=== PATIENT | male | born 1975 | race Caucasian/White ===

== ENCOUNTER 2016-12-22 09:16 | Emergency (ER) | payer MEDICAID ==
[2016-12-22] MEDS ORDERED: Sodium Chloride 0.9% 5 ML Syringe FLUSH PRN (09:18)
[2016-12-22] MEDS ORDERED: Sodium Chloride 0.9% 1,000 ML IV ONE (09:18)
--- NOTE | 2016-12-22 09:58 | EDM.PDOC ---
ED HPI GENERAL MEDICAL PROBLEM - General Chief Complaint: Chest Pain Stated Complaint: POST ELECTRIC SHOCK Time Seen by Provider: 12/22/16 09:45 Source of Information: Reports: Patient History Limitations: Reports: No Limitations - History of Present Illness INITIAL COMMENTS - FREE TEXT/NARRATIVE: 41 YO WM presents to ER with left sided chest pain after standing close to a downed power line. Pt reports no electrical shock but after a large "bang" he felt pain in his chest. Pt with associated shortness of breath and lightheadedness. Pt denies any diaphoriesis, nausea or syncope. Pt denies any other injury. Pt states he has history of anxiety but denies any previous ER visits or admissions for chest pain. Onset: Today Onset Date: 12/22/16 Onset Time: 09:00 Location: Reports: Chest Quality: Reports: Pressure Severity: Mild Improves with: Reports: None Worsens with: Reports: None Associated Symptoms: Reports: Chest Pain, Shortness of Breath. Denies: Diaphoresis, Nausea/Vomiting, Syncope - Related Data Allergies Allergy/AdvReac Type Severity Reaction Status Date / Time No Known Allergies Allergy Verified 12/22/16 10:10 ED ROS GENERAL - Review of Systems Review Of Systems: See Below Constitutional: Reports: No Symptoms HEENT: Reports: No Symptoms Respiratory: Reports: No Symptoms Cardiovascular: Reports: Chest Pain, Lightheadedness Endocrine: Reports: No Symptoms GI/Abdominal: Reports: No Symptoms : Reports: No Symptoms Musculoskeletal: Reports: No Symptoms Skin: Reports: No Symptoms Neurological: Reports: No Symptoms Psychiatric: Reports: No Symptoms Hematologic/Lymphatic: Reports: No Symptoms Immunologic: Reports: No Symptoms ED EXAM, GENERAL - Physical Exam Exam: See Below Exam Limited By: No Limitations General Appearance: Alert, WD/WN, No Apparent Distress Nose: Normal Inspection, Normal Mucosa, No Blood Throat/Mouth: Normal Inspection, Normal Lips, Normal Teeth, Normal Gums, Normal Oropharynx, Normal Voice, No Airway Compromise Head: Atraumatic, Normocephalic Neck: Normal Inspection, Supple, Non-Tender, Full Range of Motion Respiratory/Chest: No Respiratory Distress, Lungs Clear, Normal Breath Sounds, No Accessory Muscle Use, Chest Non-Tender Cardiovascular: Normal Peripheral Pulses, Regular Rate, Rhythm, No Edema, No Gallop, No JVD, No Murmur, No Rub GI/Abdominal: Normal Bowel Sounds, Soft, Non-Tender, No Organomegaly, No Distention, No Abnormal Bruit, No Mass Back Exam: Normal Inspection, Full Range of Motion, NT Extremities: Normal Inspection, Normal Range of Motion, Non-Tender, Normal Capillary Refill, No Pedal Edema Neurological: Alert, Oriented, CN II-XII Intact, Normal Cognition, Normal Gait, Normal Reflexes, No Motor/Sensory Deficits Psychiatric: Normal Affect, Normal Mood Skin Exam: Warm, Dry, Intact, Normal Color, No Rash EKG INTERPRETATION EKG Date: 12/22/16 Time: 10:30 Rhythm: NSR Rate (Beats/Min): 62 [place]: Normal P-Wave: Present QRS: Normal ST-T: Normal QT: Normal Comparison: NA - No Prior EKG Course - Vital Signs Last Recorded V/S: Last Vital Signs Temp Pulse Resp BP 132/65 12/22/16 10:10 Pulse Ox - Orders/Labs/Meds Orders: Active Orders 24 hr Category Date Time Status EKG Documentation Completion [RC] ASDIRECTED Care 12/22/16 09:19 Active Peripheral IV Care [RC] . DIRECTED Care 12/22/16 09:19 Active Chest 1V Frontal [CR] Stat Exams 12/22/16 09:21 Taken INR,PT,PROTHROMBIN TIME [COAG] Stat Lab 12/22/16 09:30 Received PTT,PARTIAL THROMBOPLSTIN TIME [COAG] Stat Lab 12/22/16 09:30 Received Nitroglycerin [Nitrostat] Med 12/22/16 10:01 Active 0.4 mg SL Q5M PRN Sodium Chloride 0.9% [Syrex Flush] Med 12/22/16 09:18 Active 5 ml FLUSH Q8HR PRN Peripheral IV Insertion Adult [OM.PC] Routine Oth 12/22/16 09:18 Ordered EKG 12 Lead [EK] Routine Ther 12/22/16 09:18 Ordered Medication Orders Nitroglycerin (Nitrostat) 0.4 mg SL Q5M PRN PRN Reason: Chest Pain Last Admin: 12/22/16 10:10 Dose: 0.4 mg Sodium Chloride (Syrex Flush) 5 ml FLUSH Q8HR PRN PRN Reason: Keep Vein Open Labs: Laboratory Tests 12/22/16 12/22/16 Range/Units 09:30 09:30 WBC 6.6 (5.0-10.0) 10^3/uL RBC 5.12 (4.50-6.00) 10^6/uL Hgb 14.3 (13.0-17.0) g/dL Hct 45.1 (40.0-52.0) % MCV 88.2 (82.0-92.0) fL MCH 28.0 (27.0-31.0) pg MCHC 31.7 L (32.0-36.0) g/dL RDW 13.3 (11.5-14.5) % Plt Count 230 (150-300) 10^3/uL MPV 8.3 (7.4-10.4) fL Neut % (Auto) 62.9 (50.0-70.0) % Lymph % (Auto) 26.1 (20.0-40.0) % [place] % (Auto) 8.7 H (2.0-8.0) % Eos % (Auto) 1.7 (1.0-3.0) % Baso % (Auto) 0.6 (0.0-1.0) % Neut # (Auto) 4.2 (2.5-7.0) 10^3/uL Lymph # (Auto) 1.7 (1.0-4.0) 10^3/uL [place] # (Auto) 0.6 (0.1-0.8) 10^3/uL Eos # (Auto) 0.1 (0.1-0.3) 10^3/uL Baso # (Auto) 0.0 (0.0-0.1) 10^3/uL Sodium 142 (136-145) mmol/L Potassium 4.0 (3.3-5.3) mmol/L Chloride 106 (98-115) mmol/L Carbon Dioxide 25.8 (21.0-32.0) mmol/L BUN 15 (6-25) mg/dL Creatinine 0.97 (0.51-1.17) mg/dL Est Cr Clr Drug Dosing TNP Estimated GFR (MDRD) > 60 mL/min Glucose 95 (70-110) mg/dL Calcium 9.0 (8.7-10.3) mg/dL Creatine Kinase 90 (26-276) U/L CK-MB (CK-2) < 0.50 (0.00-4.30) ng/mL Troponin I 0.05 (0.00-0.070) ng/mL Meds: Medications Generic Name Dose Route Start Last Admin Trade Name Jonnie PRN Reason Stop Dose Admin Nitroglycerin 0.4 mg 12/22/16 10:01 12/22/16 10:10 Nitrostat SL 0.4 mg Q5M PRN Administration Chest Pain Sodium Chloride 5 ml 12/22/16 09:18 Syrex Flush FLUSH Q8HR PRN Keep Vein Open Discontinued Medications Generic Name Dose Route Start Last Admin Trade Name Jonnie PRN Reason Stop Dose Admin Aspirin 324 mg 12/22/16 10:01 12/22/16 10:08 Aspirin PO 12/22/16 10:02 324 mg ONETIME ONE Administration Sodium Chloride 1,000 mls @ 999 mls/hr 12/22/16 09:18 Normal Saline IV 12/22/16 10:18 .BOLUS ONE - Radiology Interpretation Free Text/Narrative:: CXR- NAD Departure - Departure Time of Disposition: 10:37 Disposition: Against Medical Advice 07 Condition: Fair Clinical Impression: Chest pain Qualifiers: Chest pain type: unspecified Qualified Code(s): R07.9 - Chest pain, unspecified Referrals: PCP,Not In Area [Primary Care Provider] - Forms: ED Department Discharge, Refusal of Care AMA - My Orders Last 24 Hours: My Active Orders 12/22/16 09:18 Sodium Chloride 0.9% [Syrex Flush] 5 ml FLUSH Q8HR PRN Peripheral IV Insertion Adult [OM.PC] Routine EKG 12 Lead [EK] Routine 12/22/16 09:19 EKG Documentation Completion [RC] ASDIRECTED Peripheral IV Care [RC] . DIRECTED 12/22/16 09:21 Chest 1V Frontal [CR] Stat 12/22/16 09:30 INR,PT,PROTHROMBIN TIME [COAG] Stat PTT,PARTIAL THROMBOPLSTIN TIME [COAG] Stat 12/22/16 10:01 Nitroglycerin [Nitrostat] 0.4 mg SL Q5M PRN - Assessment/Plan Last 24 Hours: My Active Orders 12/22/16 09:18 Sodium Chloride 0.9% [Syrex Flush] 5 ml FLUSH Q8HR PRN Peripheral IV Insertion Adult [OM.PC] Routine EKG 12 Lead [EK] Routine 12/22/16 09:19 EKG Documentation Completion [RC] ASDIRECTED Peripheral IV Care [RC] . DIRECTED 12/22/16 09:21 Chest 1V Frontal [CR] Stat 12/22/16 09:30 INR,PT,PROTHROMBIN TIME [COAG] Stat PTT,PARTIAL THROMBOPLSTIN TIME [COAG] Stat 12/22/16 10:01 Nitroglycerin [Nitrostat] 0.4 mg SL Q5M PRN Assessment:: 1. chest pain 2. possible electrical shock Plan: 1. Pt signed out AMA- pt understands risk of snf disability and even . Pt states he will go to the nearest ER if chest pain returns and will arrange a stress trest and Echo as an outpatient with his PCP 2. return immediately to ER for worsening symptoms
[2016-12-22] MEDS ORDERED: Aspirin 81 MG Tab.Chew PO ONE (10:01)
[2016-12-22] MEDS: Nitroglycerin 0.4 MG Tab.SL SL PRN ×2 (10:10→10:15)
[2016-12-22 10:21] LABS: CHLORIDE,CL 106 mmol/L (98-115); SODIUM,NA 142 mmol/L (136-145)
== END 2016-12-22 10:50 | disposition left against medical advice (07) ==
LOC: KA.ED 09:16
DX: R07.9 Chest pain, unspecified (principal)
CPT/HCPCS: 71010; 80048; 82550; 82553; 84484; 85025; 85610; 85730; 93005; 96360; 99284; A9270; J7030